=== PATIENT | male | born 1965 | race African-American/Black ===

== ENCOUNTER 2022-09-24 16:29 | Inpatient (IN) ==
[2022-09-24] MEDS ORDERED: NITROGLYCERIN SL 0.4 MG TABLET SL PRN (17:17)
[2022-09-24 17:22] LABS: Basophils % 0.5 % (0.0-0.8); Eosinophils # 0.1 10*3/uL (0.0-0.87); Eosinophils % 2.3 % (0.00-10.9); Hematocrit 38.6 VOL% (42.0-52.0); Hemoglobin 12.9 GM/DL (14.0-18.0); Immature Granulocytes % 0.7 %; Immature Granulocytes Absolute 0.04 #; Lymphocytes # 1.4 10*3/uL (1.4-4.0); Mean Corpuscular HGB Conc 33.4 GM/DL (32-36); Mean Corpuscular Volume 94.4 FL (87-102); Mean Platelet Volume 11.6 FL (9.6-12.0); Monocytes # 0.7 10*3/uL (0.11-0.8); Monocytes % 11.5 % (1.7-12.7); Platelet Count 207 T/CUMM (130-400); Red Blood Count 4.09 MC/CUMM (3.8-5.5); White Blood Count 6.2 T/CUMM (4-12)
[2022-09-24 17:37] LABS: Albumin 3.6 G/DL (3.4-5.0); Bilirubin,Total 2.6 MG/DL (0.20-1.00); Calcium 8.9 MG/DL (8.5-10.1); Osmolality,Calculated 275.5 MOS/KG (273-304); Potassium 3.4 MMOL/L (3.5-5.1); Total Protein 7.6 G/DL (6.4-8.2)
[2022-09-24] MEDS ORDERED: hydrALAZINE 20 MG/1 ML VIAL IV STA (17:59)
[2022-09-24] MEDS ORDERED: NITROGLYCERIN 2% OINT 1 INCH/GM PACK TOP STA (17:59)
[2022-09-24] MEDS ORDERED: MORPHINE 2 MG/1 ML SYRINGE IV PRN (18:45)
[2022-09-24] MEDS ORDERED: ONDANSETRON 4 MG/2 ML VIAL IV PRN (18:45)
[2022-09-24] MEDS: hydrALAZINE 20 MG/1 ML VIAL IV PRN (19:37)
[2022-09-24] MEDS: ENOXAPARIN 60 MG/0.6 ML SYRINGE SUBCUT SCH (20:49)
[2022-09-24] MEDS: TICAGRELOR 90 MG TABLET PO SCH (20:49)
[2022-09-24] MEDS: METOPROLOL TARTRATE 25 MG TABLET PO SCH (20:49)
[2022-09-24] MEDS: cefTRIAXone 1,000 MG in SODIUM CHLORIDE 0.9% 100 ML IV SCH (20:51)
[2022-09-24] MEDS: chlordiazePOXIDE 10 MG CAPSULE PO PRN (23:45)
[2022-09-24] MEDS: AZITHROMYCIN INJ 500 MG in SODIUM CHLORIDE 0.9% 250 ML IV SCH (23:46)
[2022-09-25] MEDS: chlordiazePOXIDE 10 MG CAPSULE PO PRN (01:51)
[2022-09-25 05:04] LABS: Basophils % 0.4 % (0.0-0.8); Hematocrit 35.5 VOL% (42.0-52.0); Hemoglobin 11.8 GM/DL (14.0-18.0); Immature Granulocytes % 0.5 %; Immature Granulocytes Absolute 0.03 #; Lymphocytes # 0.5 10*3/uL (1.4-4.0); Lymphocytes % 9.5 % (21.2-54.2); Mean Corpuscular HGB Conc 33.2 GM/DL (32-36); Mean Corpuscular Volume 93.7 FL (87-102); Mean Platelet Volume 11.5 FL (9.6-12.0); Monocytes # 0.6 10*3/uL (0.11-0.8); Monocytes % 11.7 % (1.7-12.7); Neutrophils % 77.9 % (38.7-73.9); Platelet Count 216 T/CUMM (130-400); Red Blood Count 3.79 MC/CUMM (3.8-5.5); Red Cell Distribution Width 13.9 % (9.3-17.3); White Blood Count 5.5 T/CUMM (4-12)
[2022-09-25 05:44] LABS: Calcium 8.6 MG/DL (8.5-10.1); Osmolality,Calculated 273.8 MOS/KG (273-304); Potassium 3.2 MMOL/L (3.5-5.1); Risk Ratio 2.65; Thyroid Stimulating Hormone 1.04 uIU/ml (0.358-3.74); VLDL Cholesterol 17.6 MG/DL
[2022-09-25] MEDS: ASPIRIN EC 81 MG TABLET PO SCH (08:49)
[2022-09-25] MEDS: THIAMINE 100 MG TABLET PO SCH (08:49)
[2022-09-25] MEDS: FOLIC ACID 1 MG TABLET PO SCH (08:49)
[2022-09-25] MEDS: METOPROLOL TARTRATE 25 MG TABLET PO SCH (08:49)
[2022-09-25] MEDS: TICAGRELOR 90 MG TABLET PO SCH ×2 (08:49→21:29)
[2022-09-25] MEDS: ATORVASTATIN 40 MG TABLET PO SCH (08:49)
[2022-09-25] MEDS: PANTOPRAZOLE 40 MG TABLET PO SCH (08:49)
[2022-09-25] MEDS: hydrALAZINE 20 MG/1 ML VIAL IV PRN (08:49)
[2022-09-25] MEDS: MULTIVITAMIN (CENTRUM) TABLET PO SCH (08:49)
[2022-09-25] MEDS: ENOXAPARIN 60 MG/0.6 ML SYRINGE SUBCUT SCH ×2 (12:04→21:30)
[2022-09-25] MEDS ORDERED: amLODIPine 10 MG TABLET PO SCH (13:13)
[2022-09-25] MEDS ORDERED: CLORAZEPATE 3.75 MG TABLET PO PRN (13:52)
[2022-09-25] MEDS ORDERED: POTASSIUM CHLORIDE 20 MEQ TABLET PO ONE (15:36)
[2022-09-25] MEDS: carvediloL 6.25 MG TABLET PO SCH (16:11)
[2022-09-25] MEDS ORDERED: LOSARTAN 25 MG TABLET PO SCH (21:00)
[2022-09-25] MEDS: SACUBITRIL/VALSARTAN 49-51 MG TABLET PO SCH (21:29)
[2022-09-25] MEDS: busPIRone 5 MG TABLET PO SCH (21:29)
[2022-09-25] MEDS: cefTRIAXone 1,000 MG in SODIUM CHLORIDE 0.9% 100 ML IV SCH (21:29)
[2022-09-25] MEDS: ESCITALOPRAM 10 MG TABLET PO SCH (21:29)
[2022-09-25] MEDS: AZITHROMYCIN INJ 500 MG in SODIUM CHLORIDE 0.9% 250 ML IV SCH (22:29)
[2022-09-26 05:54] LABS: Albumin 2.9 G/DL (3.4-5.0); Bilirubin,Total 1.8 MG/DL (0.20-1.00); Calcium 8.4 MG/DL (8.5-10.1); Osmolality,Calculated 273.8 MOS/KG (273-304); Potassium 3.3 MMOL/L (3.5-5.1); Total Protein 6.9 G/DL (6.4-8.2)
[2022-09-26] MEDS: carvediloL 6.25 MG TABLET PO SCH ×3 (08:09→21:18)
[2022-09-26] MEDS: DAPAGLIFLOZIN 10 MG TABLET PO SCH (08:09)
[2022-09-26] MEDS: ASPIRIN EC 81 MG TABLET PO SCH (08:09)
[2022-09-26] MEDS: ENOXAPARIN 60 MG/0.6 ML SYRINGE SUBCUT SCH (08:09)
[2022-09-26] MEDS: SACUBITRIL/VALSARTAN 49-51 MG TABLET PO SCH ×2 (08:09→21:18)
[2022-09-26] MEDS: THIAMINE 100 MG TABLET PO SCH (08:10)
[2022-09-26] MEDS: TICAGRELOR 90 MG TABLET PO SCH ×2 (08:10→21:19)
[2022-09-26] MEDS: ATORVASTATIN 40 MG TABLET PO SCH (08:10)
[2022-09-26] MEDS: busPIRone 5 MG TABLET PO SCH ×2 (08:10→21:18)
[2022-09-26] MEDS: FOLIC ACID 1 MG TABLET PO SCH (08:10)
[2022-09-26] MEDS: MULTIVITAMIN (CENTRUM) TABLET PO SCH (08:10)
[2022-09-26] MEDS: PANTOPRAZOLE 40 MG TABLET PO SCH (08:10)
[2022-09-26] MEDS: NICOTINE 21 MG/24 HR PATCH TRANSDERM SCH (08:18)
[2022-09-26] MEDS ORDERED: POTASSIUM CHLORIDE 20 MEQ TABLET PO ONE (08:20)
[2022-09-26 08:27] LABS: Basophils % 0.1 % (0.0-0.8); Eosinophils % 0.3 % (0.00-10.9); Hematocrit 35.3 VOL% (42.0-52.0); Hemoglobin 11.8 GM/DL (14.0-18.0); Immature Granulocytes % 0.3 %; Immature Granulocytes Absolute 0.02 #; Lymphocytes # 1.1 10*3/uL (1.4-4.0); Lymphocytes % 15.6 % (21.2-54.2); Mean Corpuscular HGB Conc 33.4 GM/DL (32-36); Mean Corpuscular Volume 94.4 FL (87-102); Mean Platelet Volume 11.7 FL (9.6-12.0); Monocytes # 0.8 10*3/uL (0.11-0.8); Monocytes % 11.1 % (1.7-12.7); Neutrophils % 72.6 % (38.7-73.9); Platelet Count 256 T/CUMM (130-400); Red Blood Count 3.74 MC/CUMM (3.8-5.5); Red Cell Distribution Width 14.2 % (9.3-17.3); White Blood Count 7.1 T/CUMM (4-12)
[2022-09-26] MEDS ORDERED: MAGNESIUM SULF RIDER 2 GM/50 ML PREMIX IV ONE (09:08)
[2022-09-26] MEDS ORDERED: carvediloL 12.5 MG TABLET PO SCH (17:00)
[2022-09-26] MEDS: cefTRIAXone 1,000 MG in SODIUM CHLORIDE 0.9% 100 ML IV SCH (21:17)
[2022-09-26] MEDS: AZITHROMYCIN INJ 500 MG in SODIUM CHLORIDE 0.9% 250 ML IV SCH (21:18)
[2022-09-26] MEDS: ESCITALOPRAM 10 MG TABLET PO SCH (21:19)
[2022-09-26] MEDS: hydrALAZINE 20 MG/1 ML VIAL IV PRN (23:57)
[2022-09-27 04:51] LABS: Basophils % 0.1 % (0.0-0.8); Eosinophils % 0.1 % (0.00-10.9); Hematocrit 36.2 VOL% (42.0-52.0); Hemoglobin 12.2 GM/DL (14.0-18.0); Immature Granulocytes % 0.4 %; Immature Granulocytes Absolute 0.03 #; Lymphocytes % 14.2 % (21.2-54.2); Mean Corpuscular HGB Conc 33.7 GM/DL (32-36); Mean Platelet Volume 10.9 FL (9.6-12.0); Monocytes # 0.7 10*3/uL (0.11-0.8); Monocytes % 9.3 % (1.7-12.7); Neutrophils % 75.9 % (38.7-73.9); Platelet Count 285 T/CUMM (130-400); Red Blood Count 3.85 MC/CUMM (3.8-5.5)
[2022-09-27 05:22] LABS: Calcium 8.4 MG/DL (8.5-10.1); Osmolality,Calculated 276.7 MOS/KG (273-304); Potassium 3.6 MMOL/L (3.5-5.1)
[2022-09-27] MEDS ORDERED: amLODIPine 5 MG TABLET PO SCH (09:00)
[2022-09-27] MEDS: PANTOPRAZOLE 40 MG TABLET PO SCH (09:06)
[2022-09-27] MEDS: ASPIRIN EC 81 MG TABLET PO SCH (09:06)
[2022-09-27] MEDS: busPIRone 5 MG TABLET PO SCH (09:06)
[2022-09-27] MEDS: DAPAGLIFLOZIN 10 MG TABLET PO SCH (09:06)
[2022-09-27] MEDS: carvediloL 6.25 MG TABLET PO SCH (09:07)
[2022-09-27] MEDS: SACUBITRIL/VALSARTAN 49-51 MG TABLET PO SCH (09:07)
[2022-09-27] MEDS: THIAMINE 100 MG TABLET PO SCH (09:07)
[2022-09-27] MEDS: MULTIVITAMIN (CENTRUM) TABLET PO SCH (09:07)
[2022-09-27] MEDS: TICAGRELOR 90 MG TABLET PO SCH (09:07)
[2022-09-27] MEDS: ATORVASTATIN 40 MG TABLET PO SCH (09:07)
[2022-09-27] MEDS: FOLIC ACID 1 MG TABLET PO SCH (09:07)
[2022-09-27] MEDS: NICOTINE 21 MG/24 HR PATCH TRANSDERM SCH (09:08)
[2022-09-27] MEDS ORDERED: carvediloL 6.25 MG TABLET PO ONE (09:38)
[2022-09-27 11:57] VITALS: BP 145/88
[2022-09-27] MEDS ORDERED: carvediloL 12.5 MG TABLET PO SCH (21:00)
== END 2022-09-27 14:54 | disposition home or self-care (01) | DRG 199 ==
LOC: N.ED 16:29 → N.EDINP 18:45 → N.TELEN 20:51
PROVIDERS: ADMIT Internal Medicine; ATTEND Internal Medicine